=== PATIENT | female | born 1970 | race Hispanic/Latino ===

== ENCOUNTER 2016-10-14 13:58 | Emergency (ER) | payer SELFPAY ==
[2016-10-14 14:12] VITALS: BP 114/67
--- NOTE | 2016-10-14 15:24 | XRay Report ---
LEFT WRIST, 4 views: HISTORY: Pain, swelling. Routine views demonstrate the carpal bones to be well mineralized with well preserved bony mineralization and interosseous joint spaces. The carpal and adjacent articular bones have normal contours. The surrounding soft tissues are unremarkable. IMPRESSION: Unremarkable exam.
--- NOTE | 2016-10-14 15:24 | XRay Report ---
LEFT HAND, 3 views: History: Pain, swelling The bony architecture is intact. Bony alignment is normal. No soft tissue abnormalities are seen. The joint spaces appear preserved. IMPRESSION: Normal left hand.
[2016-10-14] MEDS ORDERED: MOTRIN PO ONE (15:41)
[2016-10-14] MEDS ORDERED: TRIPLE ANTIBIOTIC TP ONE (15:41)
--- NOTE | 2016-10-14 15:50 | Emergency Department Report ---
ED Extremity Problem HPI - General Chief complaint: Extremity Injury, Upper Stated complaint: PAIN IN R ARM Time Seen by Provider: 10/14/16 15:31 Source: patient Mode of arrival: Ambulatory Limitations: No Limitations - History of Present Illness Initial comments: PT c/o fall at 0430. PT states she was running across the street and she tripped. PT states she landed on concrete. PT states she scrapped her R shoulder but states it does not hurt. PT states her pain is in her L shoulder. MD Complaint: joint paint -: Sudden, hour(s) Time: 04:30 Location: left, upper extremity Severity scale (0 -10): 9 Quality: sharp, constant Consistency: constant Improves with: nothing Worsens with: palpation, other (movement ) Associated Symptoms: denies other symptoms - Related Data Previous Rx's Medication Instructions Recorded Last Taken Type Ibuprofen [Motrin] 600 mg PO Q8H PRN #15 tablet 10/14/16 Unknown Rx Allergies Allergy/AdvReac Type Severity Reaction Status Date / Time No Known Allergies Allergy Verified 07/02/15 19:29 ED Review of Systems ROS: Stated complaint: PAIN IN R ARM Other details as noted in HPI Comment: All other systems reviewed and negative Constitutional: denies: fever Respiratory: denies: shortness of breath, SOB with exertion, SOB at rest Cardiovascular: denies: chest pain, syncope Gastrointestinal: denies: abdominal pain, nausea, vomiting Musculoskeletal: as per HPI Skin: as per HPI Neurological: denies: numbness, paresthesias ED Past Medical Hx - Past Medical History Hx Psychiatric Treatment: Yes (bipolar) Additional medical history: Methamphetamine abuse - Surgical History Additional Surgical History: . cone biopsy. - Social History Smoking Status: Current Every Day Smoker Substance Use Type: Alcohol, Cocaine, Methamphetamines - Medications Home Medications: Home Medications Medication Instructions Recorded Confirmed Last Taken Type Ibuprofen [Motrin] 600 mg PO Q8H PRN #15 tablet 10/14/16 Unknown Rx ED Physical Exam - General Limitations: No Limitations General appearance: alert, in no apparent distress - Head Head exam: Present: atraumatic, normocephalic, normal inspection - Eye Eye exam: Present: normal appearance, EOMI. Absent: conjunctival injection - ENT ENT exam: Present: normal exam, normal external ear exam - Neck Neck exam: Present: normal inspection, full ROM. Absent: tenderness - Respiratory Respiratory exam: Present: normal lung sounds bilaterally. Absent: respiratory distress - Cardiovascular Cardiovascular Exam: Present: regular rate, normal rhythm - GI/Abdominal GI/Abdominal exam: Present: soft. Absent: tenderness - Expanded Upper Extremity Exam Left Elbow exam: Present: normal inspection, full ROM Forearm Wrist exam: Present: normal inspection, full ROM, other (pt reports pain to the Ulnar aspect of her L wrist ). Absent: tenderness Vascular: Present: radial pulse. Absent: vascular compromise Right Shoulder Exam: Present: full ROM. Absent: normal inspection (small abrasion to R ), tenderness, ecchymosis, deformity, crepidus, dislocation, tenderness over AC joint Elbow exam: Present: normal inspection, full ROM Forearm Wrist exam: Present: full ROM, ecchymosis (small bruises to R fa, non tender ). Absent: tenderness, tenderness over anatomical snuff box Vascular: Absent: vascular compromise - Back Exam Back exam: Present: normal inspection, full ROM. Absent: tenderness, CVA tenderness (R), CVA tenderness (L), muscle spasm, paraspinal tenderness, vertebral tenderness - Neurological Exam Neurological exam: Present: alert, oriented X3 - Psychiatric Psychiatric exam: Present: normal affect, normal mood - Skin Skin exam: Present: warm, dry ED Course Vital Signs 10/14/16 10/14/16 14:10 16:49 Temperature 98 F Pulse Rate 87 Respiratory 16 22 Rate Blood Pressure 114/67 O2 Sat by Pulse 99 Oximetry - Reevaluation(s) Reevaluation #1: 10/14/16 15:46 PT was unsure when her last TD vaccine was, after I looked up her vaccine summary in [employer], I went back to inform her that it was given on 11-06-14. PT was going thru cabinets in exam room at this time. Reevaluation #2: 10/14/16 16:52 PT placed in L velcro wrist splint. PT NVI. PT states decrease in pain. - Pulse Oximetry Interpretation Digit-Finger Initial Pulse Oximetry Readin Actions Taken: none ED Medical Decision Making - Radiology Data Radiology results: report reviewed L wrist - NAP L hand _ nap - Differential Diagnosis fracture, contusion, strain Critical Care Time: No Critical care attestation.: If time is entered above; I have spent that time in minutes in the direct care of this critically ill patient, excluding procedure time. ED Disposition Clinical Impression: Left wrist pain Fall Qualifiers: Encounter type: initial encounter Qualified Code(s): W19.XXXA - Unspecified fall, initial encounter Abrasion of right shoulder Qualifiers: Encounter type: initial encounter Qualified Code(s): S40.211A - Abrasion of right shoulder, initial encounter Disposition: DISCHARGED TO HOME OR SELFCARE Is pt being admited?: No Does the pt Need Aspirin: No Condition: Stable Instructions: Wrist Injury (ED), Fall Prevention (ED), Wrist Sprain (ED) Prescriptions: Ibuprofen [Motrin] 600 mg PO Q8H PRN #15 tablet PRN Reason: Pain Referrals: PRIMARY CARE, [Primary Care Provider] - 3-5 Days SHARATH ROQUE MD [Staff Physician] - 3-5 Days Time of Disposition: 15:55
== END 2016-10-14 17:07 | disposition home or self-care (01) ==
LOC: ED 13:58
DX: S40.211A Abrasion of right shoulder, initial encounter (principal); M25.532 Pain in left wrist; F31.9 Bipolar disorder, unspecified; F14.90 Cocaine use, unspecified, uncomplicated; F17.200 Nicotine dependence, unspecified, uncomplicated; W19.XXXA Unspecified fall, initial encounter; Y93.89 Activity, other specified; Y99.9 Unspecified external cause status; Y92.89 Other specified places as the place of occurrence of the external cause
CPT/HCPCS: A6250

== ENCOUNTER 2017-09-16 05:47 | Emergency (ER) | payer SELFPAY | END 2017-09-16 07:45 | disposition left against medical advice (07) | LOC: ED 05:47 | DX: L02.92 Furuncle, unspecified (principal); Z53.21 Procedure and treatment not carried out due to patient leaving prior to being seen by health care provider ==

== ENCOUNTER 2018-09-30 06:40 | Inpatient (IN) | payer OTHER ==
[2018-09-30 07:19] LABS: Basophils % (Auto) 0.5 % (0.0-1.8); Eosinophils # (Auto) 0.3 K/mm3 (0.0-0.4); Eosinophils % (Auto) 2.8 % (0.0-4.3); Hematocrit 34.5 % (30.3-42.9); Hemoglobin 12.2 gm/dl (10.1-14.3); Lymphocytes % (Auto) 21.2 % (13.4-35.0); Mean Corpuscular HGB Conc 35 % (30-34); Mean Corpuscular Volume 90 fl (79-97); Monocytes # (Auto) 0.9 K/mm3 (0.0-0.8); Platelet Count 265 K/mm3 (140-440); Red Blood Count 3.83 M/mm3 (3.65-5.03); Red Cell Distribution Width 12.7 % (13.2-15.2)
[2018-09-30 07:44] LABS: Calcium 8.3 mg/dL (8.4-10.2)
[2018-09-30] MEDS ORDERED: NACL 0.9% 1000 ML 1,000 ML IV ONE ×2 (08:09→10:14)
[2018-09-30] MEDS ORDERED: K-DUR PO ONE ×2 (08:09→17:23)
--- NOTE | 2018-09-30 08:39 | Emergency Department Report ---
ED Psych HPI - General Chief Complaint: Psych Stated Complaint: PSYCH Time Seen by Provider: 09/30/18 08:05 Source: patient Mode of arrival: Ambulatory Limitations: No Limitations - History of Present Illness Initial Comments: 48-year-old female with a past medical history of bipolar disorder and polysubstance abuse presents to the hospital with complaints of suicidal ideation and drug abuse. [facility] was recently [facility] the past 4 months ago was released 2 weeks ago. She does not have a place to live since being released from [facility]. She has been using multiple drugs but most recently reports methamphetamine abuse last night. She drinks alcohol daily but denies a history of withdrawal tremors or seizures. She is not currently on medications for bipolar and reports occasional auditory hallucinations. Patient reports plan to overdose on medications. She does complain of some chronic back pain and musculoskeletal pain. - Related Data Previous Rx's Medication Instructions Recorded Last Taken Type Ibuprofen [Motrin] 600 mg PO Q8H PRN #15 tablet 10/14/16 Unknown Rx Allergies Allergy/AdvReac Type Severity Reaction Status Date / Time No Known Allergies Allergy Verified 07/02/15 19:29 ED Review of Systems ROS: Stated complaint: PSYCH Other details as noted in HPI Comment: All other systems reviewed and negative ED Past Medical Hx - Past Medical History Previous Medical History?: Yes Hx Psychiatric Treatment: Yes (bipolar) Additional medical history: Methamphetamine abuse - Surgical History Past Surgical History?: Yes Additional Surgical History: . cone biopsy. - Social History Smoking Status: Current Every Day Smoker Substance Use Type: Alcohol, Methamphetamines - Medications Home Medications: Home Medications Medication Instructions Recorded Confirmed Last Taken Type Ibuprofen [Motrin] 600 mg PO Q8H PRN #15 tablet 10/14/16 Unknown Rx ED Physical Exam - General Limitations: No Limitations - Other Other exam information: General: No limitations, patient is alert in no acute distress Head exam: Atraumatic, normocephalic Eyes exam: Normal appearance ENT: Moist mucous membrane Neck exam: Normal inspection, full range of motion, no meningismus nontender Respiratory exam: Clear to auscultation bilateral, no wheezes, rales, crackles Cardiovascular: Normal rate and rhythm, normal heart sounds Abdomen: Soft, nondistended, and nontender, with normal bowel sounds, no rebound, or guarding Extremity: Full range of motion normal inspection no deformity Back: Normal Inspection, full range of motion, no tenderness Neurologic: Alert, oriented x3, cranial nerves intact, no motor or sensory deficit Psychiatric: normal affect, normal mood Skin: Warm, dry, intact ED Course Vital Signs 09/30/18 09/30/18 09/30/18 06:44 08:53 09:18 Temperature 97.5 F L 97.8 F Pulse Rate 84 73 Respiratory 22 26 H 20 Rate Blood Pressure 127/84 Blood Pressure 96/56 [96\56] O2 Sat by Pulse 98 98 100 Oximetry ED Medical Decision Making - Lab Data Result diagrams: 09/30/18 07:05 09/30/18 07:05 Lab Results 09/30/18 09/30/18 09/30/18 Range/Units 07:05 07:05 07:05 WBC (4.5-11.0) K/mm3 RBC (3.65-5.03) M/mm3 Hgb (10.1-14.3) gm/dl Hct (30.3-42.9) % MCV (79-97) fl MCH (28-32) pg MCHC (30-34) % RDW (13.2-15.2) % Plt Count (140-440) K/mm3 Lymph % (Auto) (13.4-35.0) % Union % (Auto) (0.0-7.3) % Eos % (Auto) (0.0-4.3) % Baso % (Auto) (0.0-1.8) % Lymph # (1.2-5.4) K/mm3 Union # (0.0-0.8) K/mm3 Eos # (0.0-0.4) K/mm3 Baso # (0.0-0.1) K/mm3 Seg Neutrophils % (40.0-70.0) % Seg Neutrophils # (1.8-7.7) K/mm3 Sodium 131 L (137-145) mmol/L Potassium 2.7 L* (3.6-5.0) mmol/L Chloride 91.6 L (98-107) mmol/L Carbon Dioxide 22 (22-30) mmol/L Anion Gap 20 mmol/L BUN 23 H (7-17) mg/dL Creatinine 1.3 H (0.7-1.2) mg/dL Estimated GFR 44 ml/min BUN/Creatinine Ratio 18 % Glucose 113 H (65-100) mg/dL Calcium 8.3 L (8.4-10.2) mg/dL Magnesium (1.7-2.3) mg/dL Total Creatine Kinase (30-135) units/L Urine Bilirubin (Negative) Urine RBC (Auto) (0.0-6.0) /HPF U Epithel Cells (Auto) (0-13.0) /HPF Salicylates 10.7 (2.8-20.0) mg/dL Acetaminophen < 5.0 L (10.0-30.0) ug/mL Plasma/Serum Alcohol (0-0.07) % 09/30/18 09/30/18 09/30/18 Range/Units 07:05 07:05 07:05 WBC 9.6 (4.5-11.0) K/mm3 RBC 3.83 (3.65-5.03) M/mm3 Hgb 12.2 (10.1-14.3) gm/dl Hct 34.5 (30.3-42.9) % MCV 90 (79-97) fl MCH 32 (28-32) pg MCHC 35 H (30-34) % RDW 12.7 L (13.2-15.2) % Plt Count 265 (140-440) K/mm3 Lymph % (Auto) 21.2 (13.4-35.0) % Union % (Auto) 9.0 H (0.0-7.3) % Eos % (Auto) 2.8 (0.0-4.3) % Baso % (Auto) 0.5 (0.0-1.8) % Lymph # 2.0 (1.2-5.4) K/mm3 Union # 0.9 H (0.0-0.8) K/mm3 Eos # 0.3 (0.0-0.4) K/mm3 Baso # 0.0 (0.0-0.1) K/mm3 Seg Neutrophils % 66.5 (40.0-70.0) % Seg Neutrophils # 6.4 (1.8-7.7) K/mm3 Sodium (137-145) mmol/L Potassium (3.6-5.0) mmol/L Chloride (98-107) mmol/L Carbon Dioxide (22-30) mmol/L Anion Gap mmol/L BUN (7-17) mg/dL Creatinine (0.7-1.2) mg/dL Estimated GFR ml/min BUN/Creatinine Ratio % Glucose (65-100) mg/dL Calcium (8.4-10.2) mg/dL Magnesium 1.90 (1.7-2.3) mg/dL Total Creatine Kinase 56042 H (30-135) units/L Urine Bilirubin (Negative) Urine RBC (Auto) (0.0-6.0) /HPF U Epithel Cells (Auto) (0-13.0) /HPF Salicylates (2.8-20.0) mg/dL Acetaminophen (10.0-30.0) ug/mL Plasma/Serum Alcohol < 0.01 (0-0.07) % 09/30/18 Range/Units 09:08 WBC (4.5-11.0) K/mm3 RBC (3.65-5.03) M/mm3 Hgb (10.1-14.3) gm/dl Hct (30.3-42.9) % MCV (79-97) fl MCH (28-32) pg MCHC (30-34) % RDW (13.2-15.2) % Plt Count (140-440) K/mm3 Lymph % (Auto) (13.4-35.0) % Union % (Auto) (0.0-7.3) % Eos % (Auto) (0.0-4.3) % Baso % (Auto) (0.0-1.8) % Lymph # (1.2-5.4) K/mm3 Union # (0.0-0.8) K/mm3 Eos # (0.0-0.4) K/mm3 Baso # (0.0-0.1) K/mm3 Seg Neutrophils % (40.0-70.0) % Seg Neutrophils # (1.8-7.7) K/mm3 Sodium (137-145) mmol/L Potassium (3.6-5.0) mmol/L Chloride (98-107) mmol/L Carbon Dioxide (22-30) mmol/L Anion Gap mmol/L BUN (7-17) mg/dL Creatinine (0.7-1.2) mg/dL Estimated GFR ml/min BUN/Creatinine Ratio % Glucose (65-100) mg/dL Calcium (8.4-10.2) mg/dL Magnesium (1.7-2.3) mg/dL Total Creatine Kinase (30-135) units/L Urine Bilirubin Neg (Negative) Urine RBC (Auto) 1.0 (0.0-6.0) /HPF U Epithel Cells (Auto) 1.0 (0-13.0) /HPF Salicylates (2.8-20.0) mg/dL Acetaminophen (10.0-30.0) ug/mL Plasma/Serum Alcohol (0-0.07) % - Medical Decision Making plan to admit for rhabdo NS inititate PO kcl for hypokalemia admit for tx and med clearance - Differential Diagnosis suicidal, bipolar, medication noncompliance, homeless Critical Care Time: No Critical care attestation.: If time is entered above; I have spent that time in minutes in the direct care of this critically ill patient, excluding procedure time. ED Disposition Clinical Impression: Rhabdomyolysis, Methamphetamine abuse, Polysubstance abuse, Hypokalemia, Suicidal ideation, Bipolar disorder, Noncompliance with medication regimen, Homeless, Cocaine abuse Disposition: OP ADMIT IP TO THIS HOSP Is pt being admited?: Yes Condition: Stable Time of Disposition: 10:21 (Dr Daniel/Sheree hospitalist to admit)
[2018-09-30 10:15] LABS: Bilirubin,Urine NEG (Negative); Color,Urine Yellow (Yellow); Urobilinogen,Urine < 2.0 mg/dL (<2.0)
[2018-09-30 10:33] LABS: Blood,Urine Moderate (Negative)
[2018-09-30 10:36] LABS: Bacteria,Urine 1+ /HPF (Negative)
[2018-09-30 10:37] LABS: HCG Qualitative,Urine Negative (Negative); Mucus,Urine FEW /HPF
[2018-09-30 11:15] LABS: Benzodiazepines Screen,Urine PRESUMPTIVE NEGATIVE; Cannabinoid Screen,Urine PRESUMPTIVE NEGATIVE; Methadone Screen,Urine PRESUMPTIVE NEGATIVE; Opiate Screen,Urine PRESUMPTIVE NEGATIVE
--- NOTE | 2018-09-30 11:23 | History and Physical Report ---
History of Present Illness Date of examination: 09/30/18 Date of admission: 09/30/18 History of present illness: 48-year-old female with a past medical history of bipolar disorder and polysubstance abuse presents to the hospital with depression and suicidal ideation patient has history of polysubstance abuse. [facility] was recently [facility] for the past 4 months ago was released 2 weeks ago. Patient is homeless and has been using multiple drugs but most recently reports methamphetamine abuse last night. She drinks alcohol daily but denies a history of withdrawal tremors or seizures. Patient has history of bipolar disorder not on any medications, also complains of gen eralized body pains Evaluation in the ED consistent with severe rhabdomyolysis, positive drug screen for marijuana and amphetamine As well as history of tobacco alcohol abuse Past History Past Medical History: other (bipolar disorder) Past Surgical History: , Other (cone biopsy) Social history: smoking, alcohol abuse, other (recreational drug use, homeless) Family history: no significant family history ( homeless) Medications and Allergies Allergies Allergy/AdvReac Type Severity Reaction Status Date / Time No Known Allergies Allergy Verified 07/02/15 19:29 Home Medications Medication Instructions Recorded Confirmed Last Taken Type Ibuprofen [Motrin] 600 mg PO Q8H PRN #15 tablet 10/14/16 Unknown Rx Review of Systems Constitutional: no weight loss, no weight gain Ears, nose, mouth and throat: no nasal congestion, no nasal discharge Cardiovascular: no chest pain, no orthopnea, no palpitations, no lightheadedness, no shortness of breath Respiratory: no cough, no shortness of breath Gastrointestinal: no abdominal pain, no nausea, no vomiting Musculoskeletal: no myalgias, no arthritis Integumentary: no rash, no pruritis Neurological: no syncope, no tremors Psychiatric: no anxiety, no depression Endocrine: no cold intolerance, no heat intolerance, no polydipsia, no polyuria Hematologic/Lymphatic: no easy bruising, no easy bleeding Allergic/Immunologic: no urticaria, no allergic rhinitis Exam - Constitutional Vitals: Temp Pulse Resp BP Pulse Ox 97.8 F 73 20 96/56 100 09/30/18 08:53 09/30/18 08:53 09/30/18 09:18 09/30/18 08:53 09/30/18 09:18 General appearance: Present: no acute distress, well-nourished - EENT Eyes: Present: PERRL, EOM intact - Neck Neck: Present: supple, normal ROM - Respiratory Respiratory effort: normal Respiratory: bilateral: diminished, negative: rales, rhonchi, wheezing - Cardiovascular Rhythm: regular Heart Sounds: Present: S1 & S2 - Extremities Extremities: no ischemia, No edema - Abdominal General gastrointestinal: Present: soft, non-tender, non-distended, normal bowel sounds - Integumentary Integumentary: Present: clear, warm - Musculoskeletal Musculoskeletal: strength equal bilaterally, generalized weakness - Psychiatric Psychiatric: appropriate mood/affect, cooperative - Neurologic Neurologic: CNII-XII intact, moves all extremities Results - Labs CBC & Chem 7: 09/30/18 07:05 09/30/18 15:53 Labs: Abnormal lab results 09/30/18 09/30/18 09/30/18 Range/Units 07:05 07:05 07:05 MCHC 35 H (30-34) % RDW 12.7 L (13.2-15.2) % Kimble % (Auto) 9.0 H (0.0-7.3) % Kimble # 0.9 H (0.0-0.8) K/mm3 Sodium 131 L (137-145) mmol/L Potassium 2.7 L* (3.6-5.0) mmol/L Chloride 91.6 L (98-107) mmol/L BUN 23 H (7-17) mg/dL Creatinine 1.3 H (0.7-1.2) mg/dL Glucose 113 H (65-100) mg/dL Calcium 8.3 L (8.4-10.2) mg/dL Total Creatine Kinase (30-135) units/L Urine Blood (Negative) U Epithel Cells (Auto) (0-13.0) /HPF Acetaminophen < 5.0 L (10.0-30.0) ug/mL 09/30/18 09/30/18 Range/Units 07:05 09:08 MCHC (30-34) % RDW (13.2-15.2) % Kimble % (Auto) (0.0-7.3) % Kimble # (0.0-0.8) K/mm3 Sodium (137-145) mmol/L Potassium (3.6-5.0) mmol/L Chloride (98-107) mmol/L BUN (7-17) mg/dL Creatinine (0.7-1.2) mg/dL Glucose (65-100) mg/dL Calcium (8.4-10.2) mg/dL Total Creatine Kinase 12032 H (30-135) units/L Urine Blood Moderate A (Negative) U Epithel Cells (Auto) 14.0 H (0-13.0) /HPF Acetaminophen (10.0-30.0) ug/mL Assessment and Plan --Severe hypokalemia; replacement per protocol Monitor levels, check magnesium --Rhabdomyolysis with preserved renal function Probably secondary to psychosis and substance abuse; Receive IV hydration, input output monitoring, monitor CK levels Renal function, diuretics --Suicidal ideation; 1013 Psych evaluation --Acute psychosis; 1013. Psych evaluation --Acute kidney injury; secondary to ATN Vigorous IV hydration, avoid nephrotoxins --Hyponatremia; replacement therapy, monitor electrolytes --UTI per urine analysis: Empiric antibiotics --Substance abuse; marijuana/amphetamines History of cocaine use tobacco and alcohol, Counseling strongly advised to quit substance abuse Drug Rehabilitation psych evaluation --Tobacco use; smoking cessation nicotine patch as needed --DVT prophylaxis; Lovenox
[2018-09-30 11:27] LABS: Amphetamine Screen,Urine PRESUMPTIVE POSITIVE; Cocaine Screen,Urine PRESUMPTIVE POSITIVE
[2018-09-30] MEDS ORDERED: NACL 0.9% 500 ML 500 ML IV ONE ×2 (14:49→19:00)
[2018-09-30 16:18] LABS: Calcium 7.2 mg/dL (8.4-10.2)
[2018-09-30] MEDS: LASIX IV SCH (17:58)
[2018-09-30] MEDS: NACL 0.9% 1000 ML 1,000 ML IV SCH ×2 (17:58→23:22)
[2018-09-30] MEDS: IBUPROFEN PO PRN (18:01)
[2018-09-30] MEDS: COLACE PO SCH (23:27)
[2018-09-30] MEDS: LOVENOX SUB-Q SCH (23:27)
[2018-10-01] MEDS: NACL 0.9% 1000 ML 1,000 ML IV SCH ×3 (03:21→19:35)
[2018-10-01] MEDS: IBUPROFEN PO PRN ×3 (03:28→21:58)
[2018-10-01 05:59] LABS: Hematocrit 27.4 % (30.3-42.9); Hemoglobin 9.7 gm/dl (10.1-14.3); Mean Corpuscular HGB Conc 36 % (30-34); Mean Corpuscular Volume 91 fl (79-97); Platelet Count 228 K/mm3 (140-440); Red Blood Count 3.01 M/mm3 (3.65-5.03); Red Cell Distribution Width 13.4 % (13.2-15.2)
[2018-10-01 06:18] LABS: Alanine Aminotransferase 145 units/L (7-56); Albumin 2.6 g/dL (3.9-5); BUN/Creatinine Ratio 9; Blood Urea Nitrogen 8 mg/dL (7-17); Hemolysis Index 9
[2018-10-01 08:30] LABS: Band Neutrophils # (Manual) 0.1 K/mm3; Basophils % (Manual) 0 % (0.0-1.8); Total Cells Counted 100
[2018-10-01 08:32] LABS: Anisocytosis 1+
--- NOTE | 2018-10-01 09:24 | Progress Note ---
Assessment and Plan Assessment and plan: --Hypokalemia; replace per protocol and monitor levels --Hypomagnesemia; mag sulfate 2 g IV, follow levels --Rhabdomyolysis with preserved renal function Probably secondary to psychosis and substance abuse; Receive IV hydration, input output monitoring, monitor CK levels Renal function, diuretics --Suicidal ideation; 1013 Psych evaluation --Acute psychosis; 1013. Psych evaluation --Acute kidney injury; secondary to ATN Vigorous IV hydration, avoid nephrotoxins --Hyponatremia; replacement therapy, corrected --UTI per urine analysis: Empiric antibiotics --Substance abuse; marijuana/amphetamines History of cocaine use tobacco and alcohol, Counseling strongly advised to quit substance abuse Drug Rehabilitation psych evaluation --Tobacco use; smoking cessation nicotine patch as needed --DVT prophylaxis; Lovenox Follow psych evaluation and recommendations History Interval history: Patient seen and examined medical records reviewed No new events reported by the nursing staff Patient feels better Safety sensitive the bedside Vital signs noted Hospitalist Physical - Constitutional Vitals: Temp Pulse Resp BP Pulse Ox 97.8 F 67 18 90/47 98 10/01/18 05:37 10/01/18 05:37 10/01/18 05:37 10/01/18 05:37 10/01/18 05:37 General appearance: Present: no acute distress, well-nourished - EENT Eyes: Present: PERRL, EOM intact - Neck Neck: Present: supple, normal ROM - Respiratory Respiratory effort: normal Respiratory: bilateral: diminished, negative: rales, rhonchi, wheezing - Cardiovascular Rhythm: regular Heart Sounds: Present: S1 & S2 - Extremities Extremities: no ischemia, No edema - Abdominal General gastrointestinal: soft, non-tender, non-distended, normal bowel sounds - Integumentary Integumentary: Present: clear, warm - Psychiatric Psychiatric: appropriate mood/affect, cooperative - Neurologic Neurologic: CNII-XII intact, moves all extremities Results - Labs CBC & Chem 7: 10/01/18 05:26 10/01/18 05:26 Labs: Laboratory Last Values WBC 4.4 K/mm3 (4.5-11.0) L 10/01/18 05:26 RBC 3.01 M/mm3 (3.65-5.03) L 10/01/18 05:26 Hgb 9.7 gm/dl (10.1-14.3) L 10/01/18 05:26 Hct 27.4 % (30.3-42.9) L D 10/01/18 05:26 MCV 91 fl (79-97) 10/01/18 05:26 MCH 32 pg (28-32) 10/01/18 05:26 MCHC 36 % (30-34) H 10/01/18 05:26 RDW 13.4 % (13.2-15.2) 10/01/18 05:26 Plt Count 228 K/mm3 (140-440) 10/01/18 05:26 Lymph % (Auto) 21.2 % (13.4-35.0) 09/30/18 07:05 [place] % (Auto) 9.0 % (0.0-7.3) H 09/30/18 07:05 Eos % (Auto) 2.8 % (0.0-4.3) 09/30/18 07:05 Baso % (Auto) 0.5 % (0.0-1.8) 09/30/18 07:05 Lymph # 2.0 K/mm3 (1.2-5.4) 09/30/18 07:05 [place] # 0.9 K/mm3 (0.0-0.8) H 09/30/18 07:05 Eos # 0.3 K/mm3 (0.0-0.4) 09/30/18 07:05 Baso # 0.0 K/mm3 (0.0-0.1) 09/30/18 07:05 Add Manual Diff Complete 10/01/18 05:26 Total Counted 100 10/01/18 05:26 Seg Neutrophils % 66.5 % (40.0-70.0) 09/30/18 07:05 Seg Neuts % (Manual) 54.0 % (40.0-70.0) 10/01/18 05:26 3.0 % 10/01/18 05:26 29.0 % (13.4-35.0) 10/01/18 05:26 Reactive Lymphs % (Man) 0 % 10/01/18 05:26 7.0 % (0.0-7.3) 10/01/18 05:26 7.0 % (0.0-4.3) H 10/01/18 05:26 0 % (0.0-1.8) 10/01/18 05:26 0 % 10/01/18 05:26 0 % 10/01/18 05:26 0 % 10/01/18 05:26 0 % 10/01/18 05:26 Nucleated RBC % Not Reportable 10/01/18 05:26 Seg Neutrophils # 6.4 K/mm3 (1.8-7.7) 09/30/18 07:05 Seg Neutrophils # Man 2.4 K/mm3 (1.8-7.7) 10/01/18 05:26 Band Neutrophils # 0.1 K/mm3 10/01/18 05:26 1.3 K/mm3 (1.2-5.4) 10/01/18 05:26 Abs React Lymphs (Man) 0.0 K/mm3 10/01/18 05:26 0.3 K/mm3 (0.0-0.8) 10/01/18 05:26 0.3 K/mm3 (0.0-0.4) 10/01/18 05:26 0.0 K/mm3 (0.0-0.1) 10/01/18 05:26 0.0 K/mm3 10/01/18 05:26 0.0 K/mm3 10/01/18 05:26 0.0 K/mm3 10/01/18 05:26 Blast Cells # 0.0 K/mm3 10/01/18 05:26 WBC Morphology Not Reportable 10/01/18 05:26 Hypersegmented Neuts Not Reportable 10/01/18 05:26 Hyposegmented Neuts Not Reportable 10/01/18 05:26 Hypogranular Neuts Not Reportable 10/01/18 05:26 Not Reportable 10/01/18 05:26 Not Reportable 10/01/18 05:26 Not Reportable 10/01/18 05:26 Not Reportable 10/01/18 05:26 Not Reportable 10/01/18 05:26 Not Reportable 10/01/18 05:26 Appears normal 10/01/18 05:26 Not Reportable 10/01/18 05:26 Plt Clumps, EDTA Not Reportable 10/01/18 05:26 Not Reportable 10/01/18 05:26 Not Reportable 10/01/18 05:26 Not Reportable 10/01/18 05:26 Plt Morphology Comment Not Reportable 10/01/18 05:26 RBC Morphology Not Reportable 10/01/18 05:26 Dimorphic RBCs Not Reportable 10/01/18 05:26 Not Reportable 10/01/18 05:26 Not Reportable 10/01/18 05:26 Not Reportable 10/01/18 05:26 1+ 10/01/18 05:26 Not Reportable 10/01/18 05:26 Not Reportable 10/01/18 05:26 Not Reportable 10/01/18 05:26 Not Reportable 10/01/18 05:26 Not Reportable 10/01/18 05:26 Not Reportable 10/01/18 05:26 Not Reportable 10/01/18 05:26 Not Reportable 10/01/18 05:26 Not Reportable 10/01/18 05:26 Not Reportable 10/01/18 05:26 Not Reportable 10/01/18 05:26 Not Reportable 10/01/18 05:26 Not Reportable 10/01/18 05:26 Not Reportable 10/01/18 05:26 Not Reportable 10/01/18 05:26 Acanthocytes (Spur) Not Reportable 10/01/18 05:26 Rouleaux Not Reportable 10/01/18 05:26 Not Reportable 10/01/18 05:26 Not Reportable 10/01/18 05:26 Not Reportable 10/01/18 05:26 Not Reportable 10/01/18 05:26 Hem Pathologist Commnt No 10/01/18 05:26 Sodium 140 mmol/L (137-145) 10/01/18 05:26 Potassium 3.2 mmol/L (3.6-5.0) L 10/01/18 05:26 Chloride 107.5 mmol/L (98-107) H 10/01/18 05:26 Carbon Dioxide 23 mmol/L (22-30) 10/01/18 05:26 13 mmol/L 10/01/18 05:26 BUN 8 mg/dL (7-17) 10/01/18 05:26 0.9 mg/dL (0.7-1.2) 10/01/18 05:26 Estimated GFR > 60 ml/min 10/01/18 05:26 9 % 10/01/18 05:26 Glucose 107 mg/dL (65-100) H 10/01/18 05:26 Calcium 7.0 mg/dL (8.4-10.2) L 10/01/18 05:26 Magnesium 1.50 mg/dL (1.7-2.3) L 10/01/18 05:26 0.20 mg/dL (0.1-1.2) 10/01/18 05:26 AST 242 units/L (5-40) H 10/01/18 05:26 ALT 145 units/L (7-56) H 10/01/18 05:26 61 units/L (35-129) 10/01/18 05:26 4652 units/L (30-135) H 10/01/18 05:26 5.1 g/dL (6.3-8.2) L 10/01/18 05:26 2.6 g/dL (3.9-5) L 10/01/18 05:26 1.0 % 10/01/18 05:26 Yellow (Yellow) 09/30/18 09:08 Slightly cloudy (Clear) 09/30/18 09:08 6.0 (5.0-7.0) 09/30/18 09:08 Ur Specific [place] 1.008 (1.003-1.030) 09/30/18 09:08 30 mg/dl mg/dL (Negative) 09/30/18 09:08 Neg mg/dL (Negative) 09/30/18 09:08 Trace mg/dL (Negative) 09/30/18 09:08 Moderate (Negative) A 09/30/18 09:08 Neg (Negative) 09/30/18 09:08 Neg (Negative) 09/30/18 09:08 < 2.0 mg/dL (<2.0) 09/30/18 09:08 Ur Leukocyte Esterase Large (Negative) 09/30/18 09:08 4.0 /HPF (0.0-6.0) 09/30/18 09:08 4.0 /HPF (0.0-6.0) 09/30/18 09:08 U Epithel Cells (Auto) 14.0 /HPF (0-13.0) H 09/30/18 09:08 1+ /HPF (Negative) 09/30/18 09:08 Few /HPF 09/30/18 09:08 Urine HCG, Qual Negative (Negative) 09/30/18 09:08 Salicylates 10.7 mg/dL (2.8-20.0) 09/30/18 07:05 Presumptive negative 09/30/18 Unknown Presumptive negative 09/30/18 Unknown Acetaminophen < 5.0 ug/mL (10.0-30.0) L 09/30/18 07:05 Ur Barbiturates Screen Presumptive negative 09/30/18 Unknown Ur Phencyclidine Scrn Presumptive negative 09/30/18 Unknown Ur Amphetamines Screen Presumptive positive 09/30/18 Unknown U Benzodiazepines Scrn Presumptive negative 09/30/18 Unknown Presumptive positive 09/30/18 Unknown U Marijuana (THC) Screen Presumptive negative 09/30/18 Unknown Disclamer 09/30/18 Unknown Plasma/Serum Alcohol < 0.01 % (0-0.07) 09/30/18 07:05 Active Medications - Current Medications Current Medications: Generic Name Dose Route Start Last Admin Trade Name Freq PRN Reason Stop Dose Admin Docusate Sodium 100 mg 09/30/18 22:00 09/30/18 23:27 Colace PO 100 mg BID JANETH Administration Enoxaparin Sodium 40 mg 09/30/18 22:00 09/30/18 23:27 Lovenox SUB-Q 40 mg QDAY@2200 JANETH Administration Furosemide 20 mg 09/30/18 18:00 09/30/18 17:58 Lasix IV 20 mg 0600,1800 JANETH Administration Sodium Chloride 1,000 mls @ 200 mls/hr 09/30/18 12:00 10/01/18 03:21 Nacl 0.9% 1000 Ml IV 200 mls/hr DIRECT JANETH Administration Ceftriaxone Sodium 1 gm in 50 mls @ 100 mls/hr 10/01/18 10:00 Rocephin/Ns 1 Gm/50 Ml IV Q24HR JANETH Protocol Ibuprofen 600 mg 09/30/18 17:28 10/01/18 03:28 Motrin PO 600 mg Q8H PRN Administration Pain
[2018-10-01] MEDS: COLACE PO SCH ×2 (09:53→21:58)
[2018-10-01] MEDS: ROCEPHIN/NS 1 GM/50 ML 1 GM/50 ML BAG IV SCH (09:54)
[2018-10-01] MEDS ORDERED: K-DUR PO ONE (10:00)
[2018-10-01] MEDS ORDERED: MAGNESIUM SULFATE 2GM/50ML 2 GM/50 ML BAG IV ONE (10:00)
[2018-10-01] MEDS: LASIX IV SCH ×2 (10:19→17:28)
--- NOTE | 2018-10-01 12:54 | Consultation ---
History of Present Illness - Reason for Consult Consult date: 10/01/18 Reason for consult: psychiatric evaluation - Chief Complaint Chief complaint: "I hurt all over." - History of Present Psychiatric Illness 48-year-old female with a past medical history of bipolar disorder and polysubstance abuse presents to the hospital with complaints of suicidal ideation and drug abuse. She was seen on the medical floor. She has been adm itted with rhabdomyolysis and has elevated liver enzymes. Patient was recently incarcerated in general for the past 4 months ago was released 2 weeks ago. She does not have a place to live since being released from nursing home. She has been using multiple drugs but most recently reports methamphetamine use before arrival to the ER. She drinks alcohol daily but denies a history of withdrawal tremors or seizures. She reports suicidal ideation to overdose. She has not been compliant with bipolar meds because she cannot afford them. She was focused on generalized pain during the interview and cried intermittently. Medications and Allergies Allergies Allergy/AdvReac Type Severity Reaction Status Date / Time No Known Allergies Allergy Verified 07/02/15 19:29 Home Medications Medication Instructions Recorded Confirmed Last Taken Type Ibuprofen [Motrin] 600 mg PO Q8H PRN #15 tablet 10/14/16 Unknown Rx Active Meds: Active Medications Docusate Sodium (Colace) 100 mg PO BID [facility] Last Admin: 10/01/18 09:53 Dose: 100 mg Documented by: Enoxaparin Sodium (Lovenox) 40 mg SUB-Q QDAY@2200 [facility] Last Admin: 09/30/18 23:27 Dose: 40 mg Documented by: Furosemide (Lasix) 20 mg IV 0600,1800 [facility] Last Admin: 10/01/18 10:19 Dose: 20 mg Documented by: Sodium Chloride (Nacl 0.9% 1000 Ml) 1,000 mls @ 200 mls/hr IV DIRECT [facility] Last Admin: 10/01/18 09:56 Dose: 200 mls/hr Documented by: Ceftriaxone Sodium (Rocephin/Ns 1 Gm/50 Ml) 1 gm in 50 mls @ 100 mls/hr IV Q24HR [facility]; Protocol Last Admin: 10/01/18 09:54 Dose: 100 mls/hr Documented by: Ibuprofen (Motrin) 600 mg PO Q8H PRN PRN Reason: Pain Last Admin: 10/01/18 12:10 Dose: 600 mg Documented by: Past psychiatric history - Past Medical History Past Medical History: hepatitis (C) - past Psychiatric treatment and history Psych: Addictions, Bipolar psychiatric treatment history: overdosed in 1995 and did not receive outpatient treatment previously took wellbutrin, lamictal 300mg daily, and seroquel - Social History Social history: other (homeless) Mental Status Exam - Vital signs Last Vital Signs Temp 97.8 F 10/01/18 05:37 Pulse 67 10/01/18 05:37 Resp 18 10/01/18 05:37 BP 90/47 10/01/18 05:37 Pulse Ox 98 10/01/18 05:37 - Exam Orientation: time, place, person Affect: depressed Mood: congruent with affect Thought content: other (suicidal ideation with a plan. no HI) Thought Process: Intact Perceptions: auditory, hallucinations (responding to internal stimuli) Speech: other (loud) Concentration: distractible Motor activity: restless Level of consciousness: alert Memory: Intact Sleep Symptoms: Insomnia Appetite: decreased Interaction: irritable Results Result Diagrams: 10/01/18 05:26 10/02/18 05:11 Abnormal lab results 09/30/18 10/01/18 10/01/18 Range/Units 15:53 05:26 05:26 WBC 4.4 L (4.5-11.0) K/mm3 RBC 3.01 L (3.65-5.03) M/mm3 Hgb 9.7 L (10.1-14.3) gm/dl Hct 27.4 L D (30.3-42.9) % MCHC 36 H (30-34) % Eosinophils % (Manual) 7.0 H (0.0-4.3) % Potassium 3.3 L D 3.2 L (3.6-5.0) mmol/L Chloride 107.5 H (98-107) mmol/L Glucose 129 H 107 H (65-100) mg/dL Calcium 7.2 L 7.0 L (8.4-10.2) mg/dL Magnesium 1.50 L (1.7-2.3) mg/dL AST 242 H (5-40) units/L ALT 145 H (7-56) units/L Total Creatine Kinase 9059 H 4652 H (30-135) units/L Total Protein 5.1 L (6.3-8.2) g/dL Albumin 2.6 L (3.9-5) g/dL All other labs normal. Assessment and Plan Assessment and plan: Impression: bipolar disorder, current episode depressed methamphetamine use, r/o amphetamine induced psychotic disorder cocaine use disorder medical team is addressing rhabdo and liver. She has hep c Recommendation: continue 1013 plan to restart wellbutrin and lamictal since these worked well for her previously . 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 dispo: once medically cleared, disposition will be determined will staff with Dr. St
[2018-10-01] MEDS: LOVENOX SUB-Q SCH (21:58)
[2018-10-02] MEDS: NACL 0.9% 1000 ML 1,000 ML IV SCH ×3 (00:39→10:03)
[2018-10-02] MEDS: LASIX IV SCH ×2 (05:22→18:00)
[2018-10-02 06:04] LABS: BUN/Creatinine Ratio 11; Blood Urea Nitrogen 8 mg/dL (7-17); Calcium 6.8 mg/dL (8.4-10.2); Hemolysis Index 2
[2018-10-02] MEDS ORDERED: K-DUR PO ONE (09:11)
[2018-10-02] MEDS ORDERED: KPHOS 40 MMOL in NACL 0.9% 500 ML 500 ML IV ONE (09:12)
[2018-10-02] MEDS ORDERED: MAGNESIUM SULFATE 2GM/50ML 2 GM/50 ML BAG IV ONE (09:13)
--- NOTE | 2018-10-02 09:18 | Progress Note ---
Assessment and Plan Assessment and plan: --Hypokalemia; replace per protocol and monitor levels --Hypomagnesemia; mag sulfate 2 g IV, follow levels --Hypophosphatemia: Replace with K-Phos --Rhabdomyolysis with preserved renal function CK levels trendin- 5997- 7887 Probably secondary to psychosis and substance abuse; Continue IV hydration, input output monitoring --Suicidal ideation; 1013 Psych evaluation --Acute psychosis; 1013. Psych evaluation --Acute kidney injury; secondary to ATN Resolved --Hyponatremia; replacement therapy, corrected --UTI per urine analysis: Empiric antibiotics, cultures negative to date --Substance abuse; marijuana/amphetamines History of cocaine use tobacco and alcohol, Counseling strongly advised to quit substance abuse Drug Rehabilitation psych evaluation --Tobacco use; smoking cessation nicotine patch as needed --DVT prophylaxis; Lovenox Follow psych evaluation and recommendations History Interval history: Patient seen and examined medical records reviewed Patient feels better no new complaints No new episodes of suicidal ideation or thoughts Safety seat at the bedside Alert awake oriented Vital signs reviewed Hospitalist Physical - Constitutional Vitals: Temp Pulse Resp BP Pulse Ox 98.6 F 66 16 102/55 94 10/02/18 05:50 10/02/18 05:50 10/02/18 05:50 10/02/18 05:50 10/02/18 05:50 General appearance: Present: no acute distress, well-nourished, obese - EENT Eyes: Present: PERRL, EOM intact - Neck Neck: Present: supple, normal ROM - Respiratory Respiratory effort: normal Respiratory: bilateral: diminished, negative: rales, rhonchi, wheezing - Cardiovascular Rhythm: regular Heart Sounds: Present: S1 & S2 - Extremities Extremities: no ischemia, No edema - Abdominal General gastrointestinal: soft, non-tender, non-distended, normal bowel sounds - Integumentary Integumentary: Present: clear, warm - Psychiatric Psychiatric: appropriate mood/affect, cooperative - Neurologic Neurologic: CNII-XII intact, moves all extremities Results - Labs CBC & Chem 7: 10/01/18 05:26 10/02/18 05:11 Labs: Laboratory Last Values WBC 4.4 K/mm3 (4.5-11.0) L 10/01/18 05:26 RBC 3.01 M/mm3 (3.65-5.03) L 10/01/18 05:26 Hgb 9.7 gm/dl (10.1-14.3) L 10/01/18 05:26 Hct 27.4 % (30.3-42.9) L D 10/01/18 05:26 MCV 91 fl (79-97) 10/01/18 05:26 MCH 32 pg (28-32) 10/01/18 05:26 MCHC 36 % (30-34) H 10/01/18 05:26 RDW 13.4 % (13.2-15.2) 10/01/18 05:26 Plt Count 228 K/mm3 (140-440) 10/01/18 05:26 Lymph % (Auto) 21.2 % (13.4-35.0) 09/30/18 07:05 [place] % (Auto) 9.0 % (0.0-7.3) H 09/30/18 07:05 Eos % (Auto) 2.8 % (0.0-4.3) 09/30/18 07:05 Baso % (Auto) 0.5 % (0.0-1.8) 09/30/18 07:05 Lymph # 2.0 K/mm3 (1.2-5.4) 09/30/18 07:05 [place] # 0.9 K/mm3 (0.0-0.8) H 09/30/18 07:05 Eos # 0.3 K/mm3 (0.0-0.4) 09/30/18 07:05 Baso # 0.0 K/mm3 (0.0-0.1) 09/30/18 07:05 Add Manual Diff Complete 10/01/18 05:26 Total Counted 100 10/01/18 05:26 Seg Neutrophils % 66.5 % (40.0-70.0) 09/30/18 07:05 Seg Neuts % (Manual) 54.0 % (40.0-70.0) 10/01/18 05:26 3.0 % 10/01/18 05:26 29.0 % (13.4-35.0) 10/01/18 05:26 Reactive Lymphs % (Man) 0 % 10/01/18 05:26 7.0 % (0.0-7.3) 10/01/18 05:26 7.0 % (0.0-4.3) H 10/01/18 05:26 0 % (0.0-1.8) 10/01/18 05:26 0 % 10/01/18 05:26 0 % 10/01/18 05:26 0 % 10/01/18 05:26 0 % 10/01/18 05:26 Nucleated RBC % Not Reportable 10/01/18 05:26 Seg Neutrophils # 6.4 K/mm3 (1.8-7.7) 09/30/18 07:05 Seg Neutrophils # Man 2.4 K/mm3 (1.8-7.7) 10/01/18 05:26 Band Neutrophils # 0.1 K/mm3 10/01/18 05:26 1.3 K/mm3 (1.2-5.4) 10/01/18 05:26 Abs React Lymphs (Man) 0.0 K/mm3 10/01/18 05:26 0.3 K/mm3 (0.0-0.8) 10/01/18 05:26 0.3 K/mm3 (0.0-0.4) 10/01/18 05:26 0.0 K/mm3 (0.0-0.1) 10/01/18 05:26 0.0 K/mm3 10/01/18 05:26 0.0 K/mm3 10/01/18 05:26 0.0 K/mm3 10/01/18 05:26 Blast Cells # 0.0 K/mm3 10/01/18 05:26 WBC Morphology Not Reportable 10/01/18 05:26 Hypersegmented Neuts Not Reportable 10/01/18 05:26 Hyposegmented Neuts Not Reportable 10/01/18 05:26 Hypogranular Neuts Not Reportable 10/01/18 05:26 Not Reportable 10/01/18 05:26 Not Reportable 10/01/18 05:26 Not Reportable 10/01/18 05:26 Not Reportable 10/01/18 05:26 Not Reportable 10/01/18 05:26 Not Reportable 10/01/18 05:26 Appears normal 10/01/18 05:26 Not Reportable 10/01/18 05:26 Plt Clumps, EDTA Not Reportable 10/01/18 05:26 Not Reportable 10/01/18 05:26 Not Reportable 10/01/18 05:26 Not Reportable 10/01/18 05:26 Plt Morphology Comment Not Reportable 10/01/18 05:26 RBC Morphology Not Reportable 10/01/18 05:26 Dimorphic RBCs Not Reportable 10/01/18 05:26 Not Reportable 10/01/18 05:26 Not Reportable 10/01/18 05:26 Not Reportable 10/01/18 05:26 1+ 10/01/18 05:26 Not Reportable 10/01/18 05:26 Not Reportable 10/01/18 05:26 Not Reportable 10/01/18 05:26 Not Reportable 10/01/18 05:26 Not Reportable 10/01/18 05:26 Not Reportable 10/01/18 05:26 Not Reportable 10/01/18 05:26 Not Reportable 10/01/18 05:26 Not Reportable 10/01/18 05:26 Not Reportable 10/01/18 05:26 Not Reportable 10/01/18 05:26 Not Reportable 10/01/18 05:26 Not Reportable 10/01/18 05:26 Not Reportable 10/01/18 05:26 Not Reportable 10/01/18 05:26 Acanthocytes (Spur) Not Reportable 10/01/18 05:26 Rouleaux Not Reportable 10/01/18 05:26 Not Reportable 10/01/18 05:26 Not Reportable 10/01/18 05:26 Not Reportable 10/01/18 05:26 Not Reportable 10/01/18 05:26 Hem Pathologist Commnt No 10/01/18 05:26 Sodium 143 mmol/L (137-145) 10/02/18 05:11 Potassium 3.0 mmol/L (3.6-5.0) L 10/02/18 05:11 Chloride 106.4 mmol/L (98-107) 10/02/18 05:11 Carbon Dioxide 27 mmol/L (22-30) 10/02/18 05:11 13 mmol/L 10/02/18 05:11 BUN 8 mg/dL (7-17) 10/02/18 05:11 0.7 mg/dL (0.7-1.2) 10/02/18 05:11 Estimated GFR > 60 ml/min 10/02/18 05:11 11 % 10/02/18 05:11 Glucose 105 mg/dL (65-100) H 10/02/18 05:11 Calcium 6.8 mg/dL (8.4-10.2) L 10/02/18 05:11 Phosphorus 1.90 mg/dL (2.5-4.5) L 10/02/18 05:11 Magnesium 1.60 mg/dL (1.7-2.3) L 10/02/18 05:11 0.20 mg/dL (0.1-1.2) 10/01/18 05:26 AST 242 units/L (5-40) H 10/01/18 05:26 ALT 145 units/L (7-56) H 10/01/18 05:26 61 units/L (35-129) 10/01/18 05:26 2347 units/L (30-135) H 10/02/18 05:11 5.1 g/dL (6.3-8.2) L 10/01/18 05:26 2.6 g/dL (3.9-5) L 10/01/18 05:26 1.0 % 10/01/18 05:26 Yellow (Yellow) 09/30/18 09:08 Slightly cloudy (Clear) 09/30/18 09:08 6.0 (5.0-7.0) 09/30/18 09:08 Ur Specific [place] 1.008 (1.003-1.030) 09/30/18 09:08 30 mg/dl mg/dL (Negative) 09/30/18 09:08 Neg mg/dL (Negative) 09/30/18 09:08 Trace mg/dL (Negative) 09/30/18 09:08 Moderate (Negative) A 09/30/18 09:08 Neg (Negative) 09/30/18 09:08 Neg (Negative) 09/30/18 09:08 < 2.0 mg/dL (<2.0) 09/30/18 09:08 Ur Leukocyte Esterase Large (Negative) 09/30/18 09:08 4.0 /HPF (0.0-6.0) 09/30/18 09:08 4.0 /HPF (0.0-6.0) 09/30/18 09:08 U Epithel Cells (Auto) 14.0 /HPF (0-13.0) H 09/30/18 09:08 1+ /HPF (Negative) 09/30/18 09:08 Few /HPF 09/30/18 09:08 Urine HCG, Qual Negative (Negative) 09/30/18 09:08 Salicylates 10.7 mg/dL (2.8-20.0) 09/30/18 07:05 Presumptive negative 09/30/18 Unknown Presumptive negative 09/30/18 Unknown Acetaminophen < 5.0 ug/mL (10.0-30.0) L 09/30/18 07:05 Ur Barbiturates Screen Presumptive negative 09/30/18 Unknown Ur Phencyclidine Scrn Presumptive negative 09/30/18 Unknown Ur Amphetamines Screen Presumptive positive 09/30/18 Unknown U Benzodiazepines Scrn Presumptive negative 09/30/18 Unknown Presumptive positive 09/30/18 Unknown U Marijuana (THC) Screen Presumptive negative 09/30/18 Unknown Disclamer 09/30/18 Unknown Plasma/Serum Alcohol < 0.01 % (0-0.07) 09/30/18 07:05 Active Medications - Current Medications Current Medications: Generic Name Dose Route Start Last Admin Trade Name Celia PRN Reason Stop Dose Admin Docusate Sodium 100 mg 09/30/18 22:00 10/01/18 21:58 Colace PO 100 mg BID JANETH Administration Enoxaparin Sodium 40 mg 09/30/18 22:00 10/01/18 21:58 Lovenox SUB-Q 40 mg QDAY@2200 JANETH Administration Furosemide 20 mg 09/30/18 18:00 10/02/18 05:22 Lasix IV 20 mg 0600,1800 JANETH Administration Sodium Chloride 1,000 mls @ 200 mls/hr 09/30/18 12:00 10/02/18 04:46 Nacl 0.9% 1000 Ml IV 200 mls/hr DIRECT JANETH Administration Ceftriaxone Sodium 1 gm in 50 mls @ 100 mls/hr 10/01/18 10:00 10/01/18 09:54 Rocephin/Ns 1 Gm/50 Ml IV 100 mls/hr Q24HR JANETH Administration Protocol Potassium Phosphate 40 mmol/ 513.3333 mls @ 83 mls/hr 10/02/18 09:12 Sodium Chloride IV 10/02/18 15:23 ONCE ONE Magnesium Sulfate 2 gm in 50 mls @ 25 mls/hr 10/02/18 09:13 Magnesium Sulfate 2gm/50ml IV 10/02/18 11:12 ONCE ONE Ibuprofen 600 mg 09/30/18 17:28 10/01/18 21:58 Motrin PO 600 mg Q8H PRN Administration Pain Potassium Chloride 40 meq 10/02/18 09:11 [place] PO 10/02/18 09:12 ONCE ONE
[2018-10-02] MEDS: ROCEPHIN/NS 1 GM/50 ML 1 GM/50 ML BAG IV SCH (10:06)
[2018-10-02] MEDS: COLACE PO SCH ×2 (10:06→21:24)
[2018-10-02] MEDS: IBUPROFEN PO PRN ×2 (12:08→21:24)
--- NOTE | 2018-10-02 18:42 | Progress Note ---
Subjective - Reason for Consult Consult date: 10/02/18 Reason for consult: follow up - Chief Complaint Chief complaint: "I feel bad." 48-year-old female with a past medical history of bipolar disorder and polysubstance abuse presents to the hospital with complaints of suicidal ideation and drug abuse. She was seen on the medical floor. She has been admitted with rhabdomyolysis and has elevated liver enzymes. Patient was recently incarcerated in [facility] for the past 4 months ago was released 2 weeks ago. She does not have a place to live since being released from [facility]. She has been using multiple drugs but most recently reports methamphetamine use before arrival to the ER. She drinks alcohol daily but denies a history of withdrawal tremors or seizures. She is tearful today and wants to know when she can get some help at a psychiatric facility. She is not medically cleared. She wants to be back on meds. Her CK is trending down. She continues to intermittently respond to internal stimuli. She reports suicidal ideation to overdose. - Exam Orientation: time, place, person Affect: depressed Mood: congruent with affect Thought content: other (suicidal ideation with a plan. no HI) Thought Process: Intact Perceptions: auditory, hallucinations (responding to internal stimuli) Speech: other (loud) Concentration: distractible Motor activity: restless Level of consciousness: alert Memory: Intact Sleep Symptoms: Insomnia Appetite: decreased Interaction: irritable Assessment and plan: Impression: bipolar disorder, current episode depressed methamphetamine use, r/o amphetamine induced psychotic disorder cocaine use disorder medical team is addressing rhabdo and liver. She has hep c Recommendation: continue 1013 plan to restart wellbutrin and lamictal since these worked well for her previously . 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 plan to restart seroquel once ck has normalized dispo: once medically cleared, inpatient psychiatric facility will staff with Dr. St Mental Status Exam - Vital signs Last Vital Signs Temp 98.4 F 10/02/18 16:46 Pulse 72 10/02/18 16:46 Resp 18 10/02/18 16:46 BP 93/55 10/02/18 16:46 Pulse Ox 97 10/02/18 16:46
[2018-10-02] MEDS: LOVENOX SUB-Q SCH (21:25)
[2018-10-02] MEDS: LaMICtal PO SCH (21:34)
[2018-10-03] MEDS: NACL 0.9% 1000 ML 1,000 ML IV SCH ×4 (01:06→23:23)
[2018-10-03] MEDS: LASIX IV SCH ×2 (05:53→18:07)
[2018-10-03] MEDS: IBUPROFEN PO PRN ×2 (06:11→17:04)
[2018-10-03 06:36] LABS: BUN/Creatinine Ratio 10; Blood Urea Nitrogen 6 mg/dL (7-17); Calcium 6.7 mg/dL (8.4-10.2); Hemolysis Index 2
[2018-10-03 09:02] LABS: Alanine Aminotransferase 90 units/L (7-56)
[2018-10-03] MEDS: ROCEPHIN/NS 1 GM/50 ML 1 GM/50 ML BAG IV SCH (09:35)
[2018-10-03] MEDS: WELLBUTRIN XL PO SCH (09:35)
[2018-10-03] MEDS: COLACE PO SCH ×2 (09:35→21:53)
--- NOTE | 2018-10-03 10:49 | Progress Note ---
Subjective - Reason for Consult Consult date: 10/03/18 Reason for consult: Psychiatry Follow-up - Chief Complaint Chief complaint: "I'm trying to get better" 48-year-old female with a past medical history of bipolar disorder and polysubstance abuse presents to the hospital with complaints of suicidal ideation and drug abuse. Today the patient is calm and cooperative during the assessment. She stated that her "drug use" is the cause for her life to be a "drag." She stated that rehab services is something she wants to do when discharged. She would not confirm or deny SI's. She did acknowledge a previous suicide attempt in the past. She denies HI's and AVH's. She denies any side effects of her medications. Mental Status Exam - Vital signs Last Vital Signs Temp 98.6 F 10/03/18 05:16 Pulse 71 10/03/18 05:16 Resp 18 10/03/18 06:11 BP 103/66 10/03/18 05:16 Pulse Ox 98 10/03/18 05:16 - Exam Narrative exam: MSE: Appearance: calm, cooperative Behavior: regular eye contact Speech: regular rate and tone Mood: withdrawn Affect: congruent to mood Thought Process: linear Thought Content: denies HI's and AVH's Motor Activity: sitting up in the bed Cognition: A/O x 3 Insight: fair Judgment: variable Assessment and Plan Impression: Bipolar DO. Substance Use DO (cocaine/amphetamine). Today the patient is calm and cooperative during the assessment. LF's trending down. Recommendation/Plan: Continue 1013, Lamictal 25 mg Po HS for mood and Wellbutrin 150 mg PO daily for depression. Discussed SJS with the patient, she verbalized understanding. Discussed possible suicidality/medication induced anat with the patient reference Wellbitrin, she verbalized understanding. Discussed the importance to abstain from recreational drug use with the patient, she verbalized understanding. Dispo: Once the patient is medically clear, proper dispo will be determined. Will staff with Dr Cherry St.
--- NOTE | 2018-10-03 16:35 | Progress Note ---
Assessment and Plan Assessment and plan: -48-year-old obese female patient with history of bipolar disorder polysubstance abuse was admitted through emergency room with severe depression and suicidal thoughts and ideation, Patient was admitted placed on 1013 status being symptomatically managed evaluated by psych Patient's multiple electrolyte abnormalities noted and corrected Patient is medically stable for discharge Discharge diagnosis: --Depression/Suicidal ideation; 1013 Psych following--Hypokalemia; hypomagnesemia: Hypophosphatemia: Corrected --Rhabdomyolysis with preserved renal function CK levels trendin- 2102- 2347 - 1190 Continue IV hydration, input output monitoring --Acute psychosis; 1013. Psych evaluation --RAMO; secondary to ATN, resolved --Hyponatremia; replacement therapy, corrected --UTI per urine analysis: Empiric antibiotics, cultures negative to date --Substance abuse; marijuana/amphetamines History of cocaine use tobacco and alcohol, Counseling strongly advised to quit substance abuse Drug Rehabilitation psych evaluation --Tobacco use; smoking cessation nicotine patch as needed --DVT prophylaxis; Lovenox Patient is medically stable for discharge home versus inpatient psych facility Disposition: Inpatient psych placement. 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 Hospitalist Physical - Constitutional Vitals: Temp Pulse Resp BP Pulse Ox 98.3 F 71 16 138/66 98 10/03/18 12:24 10/03/18 05:16 10/03/18 12:24 10/03/18 12:24 10/03/18 05:16 General appearance: Present: no acute distress, well-nourished, obese - EENT Eyes: Present: PERRL, EOM intact - Neck Neck: Present: supple, normal ROM - Respiratory Respiratory effort: normal Respiratory: bilateral: diminished, negative: rales, rhonchi, wheezing - Cardiovascular Rhythm: regular Heart Sounds: Present: S1 & S2 - Extremities Extremities: no ischemia, pulses intact - Abdominal General gastrointestinal: soft, non-tender, non-distended, normal bowel sounds - Integumentary Integumentary: Present: clear, warm - Psychiatric Psychiatric: appropriate mood/affect, cooperative - Neurologic Neurologic: CNII-XII intact, moves all extremities Results - Labs CBC & Chem 7: 10/01/18 05:26 10/03/18 04:52 Labs: Laboratory Last Values WBC 4.4 K/mm3 (4.5-11.0) L 10/01/18 05:26 RBC 3.01 M/mm3 (3.65-5.03) L 10/01/18 05:26 Hgb 9.7 gm/dl (10.1-14.3) L 10/01/18 05:26 Hct 27.4 % (30.3-42.9) L D 10/01/18 05:26 MCV 91 fl (79-97) 10/01/18 05:26 MCH 32 pg (28-32) 10/01/18 05:26 MCHC 36 % (30-34) H 10/01/18 05:26 RDW 13.4 % (13.2-15.2) 10/01/18 05:26 Plt Count 228 K/mm3 (140-440) 10/01/18 05:26 Lymph % (Auto) 21.2 % (13.4-35.0) 09/30/18 07:05 [place] % (Auto) 9.0 % (0.0-7.3) H 09/30/18 07:05 Eos % (Auto) 2.8 % (0.0-4.3) 09/30/18 07:05 Baso % (Auto) 0.5 % (0.0-1.8) 09/30/18 07:05 Lymph # 2.0 K/mm3 (1.2-5.4) 09/30/18 07:05 [place] # 0.9 K/mm3 (0.0-0.8) H 09/30/18 07:05 Eos # 0.3 K/mm3 (0.0-0.4) 09/30/18 07:05 Baso # 0.0 K/mm3 (0.0-0.1) 09/30/18 07:05 Add Manual Diff Complete 10/01/18 05:26 Total Counted 100 10/01/18 05:26 Seg Neutrophils % 66.5 % (40.0-70.0) 09/30/18 07:05 Seg Neuts % (Manual) 54.0 % (40.0-70.0) 10/01/18 05:26 3.0 % 10/01/18 05:26 29.0 % (13.4-35.0) 10/01/18 05:26 Reactive Lymphs % (Man) 0 % 10/01/18 05:26 7.0 % (0.0-7.3) 10/01/18 05:26 7.0 % (0.0-4.3) H 10/01/18 05:26 0 % (0.0-1.8) 10/01/18 05:26 0 % 10/01/18 05:26 0 % 10/01/18 05:26 0 % 10/01/18 05:26 0 % 10/01/18 05:26 Nucleated RBC % Not Reportable 10/01/18 05:26 Seg Neutrophils # 6.4 K/mm3 (1.8-7.7) 09/30/18 07:05 Seg Neutrophils # Man 2.4 K/mm3 (1.8-7.7) 10/01/18 05:26 Band Neutrophils # 0.1 K/mm3 10/01/18 05:26 1.3 K/mm3 (1.2-5.4) 10/01/18 05:26 Abs React Lymphs (Man) 0.0 K/mm3 10/01/18 05:26 0.3 K/mm3 (0.0-0.8) 10/01/18 05:26 0.3 K/mm3 (0.0-0.4) 10/01/18 05:26 0.0 K/mm3 (0.0-0.1) 10/01/18 05:26 0.0 K/mm3 10/01/18 05:26 0.0 K/mm3 10/01/18 05:26 0.0 K/mm3 10/01/18 05:26 Blast Cells # 0.0 K/mm3 10/01/18 05:26 WBC Morphology Not Reportable 10/01/18 05:26 Hypersegmented Neuts Not Reportable 10/01/18 05:26 Hyposegmented Neuts Not Reportable 10/01/18 05:26 Hypogranular Neuts Not Reportable 10/01/18 05:26 Not Reportable 10/01/18 05:26 Not Reportable 10/01/18 05:26 Not Reportable 10/01/18 05:26 Not Reportable 10/01/18 05:26 Not Reportable 10/01/18 05:26 Not Reportable 10/01/18 05:26 Appears normal 10/01/18 05:26 Not Reportable 10/01/18 05:26 Plt Clumps, EDTA Not Reportable 10/01/18 05:26 Not Reportable 10/01/18 05:26 Not Reportable 10/01/18 05:26 Not Reportable 10/01/18 05:26 Plt Morphology Comment Not Reportable 10/01/18 05:26 RBC Morphology Not Reportable 10/01/18 05:26 Dimorphic RBCs Not Reportable 10/01/18 05:26 Not Reportable 10/01/18 05:26 Not Reportable 10/01/18 05:26 Not Reportable 10/01/18 05:26 1+ 10/01/18 05:26 Not Reportable 10/01/18 05:26 Not Reportable 10/01/18 05:26 Not Reportable 10/01/18 05:26 Not Reportable 10/01/18 05:26 Not Reportable 10/01/18 05:26 Not Reportable 10/01/18 05:26 Not Reportable 10/01/18 05:26 Not Reportable 10/01/18 05:26 Not Reportable 10/01/18 05:26 Not Reportable 10/01/18 05:26 Not Reportable 10/01/18 05:26 Not Reportable 10/01/18 05:26 Not Reportable 10/01/18 05:26 Not Reportable 10/01/18 05:26 Not Reportable 10/01/18 05:26 Acanthocytes (Spur) Not Reportable 10/01/18 05:26 Rouleaux Not Reportable 10/01/18 05:26 Not Reportable 10/01/18 05:26 Not Reportable 10/01/18 05:26 Not Reportable 10/01/18 05:26 Not Reportable 10/01/18 05:26 Hem Pathologist Commnt No 10/01/18 05:26 Sodium 144 mmol/L (137-145) 10/03/18 04:52 Potassium 3.9 mmol/L (3.6-5.0) D 10/03/18 04:52 Chloride 109.0 mmol/L (98-107) H 10/03/18 04:52 Carbon Dioxide 26 mmol/L (22-30) 05/13/19 04:52 13 mmol/L 10/03/18 04:52 BUN 6 mg/dL (7-17) L 10/03/18 04:52 0.6 mg/dL (0.7-1.2) L 10/03/18 04:52 Estimated GFR > 60 ml/min 10/03/18 04:52 10 % 10/03/18 04:52 Glucose 96 mg/dL (65-100) 10/03/18 04:52 Calcium 6.7 mg/dL (8.4-10.2) L 10/03/18 04:52 Phosphorus 2.60 mg/dL (2.5-4.5) D 10/03/18 04:52 Magnesium 1.80 mg/dL (1.7-2.3) 10/03/18 04:52 0.20 mg/dL (0.1-1.2) 10/01/18 05:26 AST 83 units/L (5-40) H 10/03/18 08:28 ALT 90 units/L (7-56) H 10/03/18 08:28 53 units/L (35-129) 10/03/18 08:28 1196 units/L (30-135) H 10/03/18 04:52 5.1 g/dL (6.3-8.2) L 10/01/18 05:26 2.6 g/dL (3.9-5) L 10/01/18 05:26 1.0 % 10/01/18 05:26 Yellow (Yellow) 09/30/18 09:08 Slightly cloudy (Clear) 09/30/18 09:08 6.0 (5.0-7.0) 09/30/18 09:08 Ur Specific [place] 1.008 (1.003-1.030) 09/30/18 09:08 30 mg/dl mg/dL (Negative) 09/30/18 09:08 Neg mg/dL (Negative) 09/30/18 09:08 Trace mg/dL (Negative) 09/30/18 09:08 Moderate (Negative) A 09/30/18 09:08 Neg (Negative) 09/30/18 09:08 Neg (Negative) 09/30/18 09:08 < 2.0 mg/dL (<2.0) 09/30/18 09:08 Ur Leukocyte Esterase Large (Negative) 09/30/18 09:08 4.0 /HPF (0.0-6.0) 09/30/18 09:08 4.0 /HPF (0.0-6.0) 09/30/18 09:08 U Epithel Cells (Auto) 14.0 /HPF (0-13.0) H 09/30/18 09:08 1+ /HPF (Negative) 09/30/18 09:08 Few /HPF 09/30/18 09:08 Urine HCG, Qual Negative (Negative) 09/30/18 09:08 Salicylates 10.7 mg/dL (2.8-20.0) 09/30/18 07:05 Presumptive negative 09/30/18 Unknown Presumptive negative 09/30/18 Unknown Acetaminophen < 5.0 ug/mL (10.0-30.0) L 09/30/18 07:05 Ur Barbiturates Screen Presumptive negative 09/30/18 Unknown Ur Phencyclidine Scrn Presumptive negative 09/30/18 Unknown Ur Amphetamines Screen Presumptive positive 09/30/18 Unknown U Benzodiazepines Scrn Presumptive negative 09/30/18 Unknown Presumptive positive 09/30/18 Unknown U Marijuana (THC) Screen Presumptive negative 09/30/18 Unknown Disclamer 09/30/18 Unknown Plasma/Serum Alcohol < 0.01 % (0-0.07) 09/30/18 07:05 Active Medications - Current Medications Current Medications: Generic Name Dose Route Start Last Admin Trade Name Freq PRN Reason Stop Dose Admin Bupropion HCl 150 mg 10/03/18 10:00 10/03/18 09:35 Wellbutrin Xl PO 150 mg QDAY JANETH Administration Docusate Sodium 100 mg 09/30/18 22:00 10/03/18 09:35 Colace PO 100 mg BID JANETH Administration Enoxaparin Sodium 40 mg 09/30/18 22:00 10/02/18 21:25 Lovenox SUB-Q 40 mg QDAY@2200 JANETH Administration Furosemide 20 mg 09/30/18 18:00 10/03/18 05:53 Lasix IV 20 mg 0600,1800 JANETH Administration Sodium Chloride 1,000 mls @ 200 mls/hr 09/30/18 12:00 10/03/18 11:19 Nacl 0.9% 1000 Ml IV 200 mls/hr DIRECT JANETH Administration Ceftriaxone Sodium 1 gm in 50 mls @ 100 mls/hr 10/01/18 10:00 10/03/18 09:35 Rocephin/Ns 1 Gm/50 Ml IV 100 mls/hr Q24HR JANETH Administration Protocol Ibuprofen 600 mg 09/30/18 17:28 10/03/18 06:11 Motrin PO 600 mg Q8H PRN Administration Pain Lamotrigine 25 mg 10/02/18 22:00 10/02/18 21:34 Lamictal PO 25 mg HS JANETH Administration
[2018-10-03] MEDS: LaMICtal PO SCH (21:53)
[2018-10-03] MEDS: LOVENOX SUB-Q SCH (21:53)
[2018-10-04 05:28] LABS: Basophils % (Auto) 0.8 % (0.0-1.8); Eosinophils # (Auto) 0.2 K/mm3 (0.0-0.4); Eosinophils % (Auto) 4.6 % (0.0-4.3); Hematocrit 30.7 % (30.3-42.9); Hemoglobin 10.3 gm/dl (10.1-14.3); Lymphocytes # (Auto) 1.3 K/mm3 (1.2-5.4); Lymphocytes % (Auto) 30.1 % (13.4-35.0); Mean Corpuscular HGB Conc 34 % (30-34); Mean Corpuscular Volume 95 fl (79-97); Monocytes # (Auto) 0.5 K/mm3 (0.0-0.8); Monocytes % (Auto) 12.6 % (0.0-7.3); Platelet Count 260 K/mm3 (140-440); Red Blood Count 3.22 M/mm3 (3.65-5.03); Red Cell Distribution Width 14.2 % (13.2-15.2)
[2018-10-04 05:39] LABS: Alanine Aminotransferase 69 units/L (7-56); Albumin 2.9 g/dL (3.9-5); BUN/Creatinine Ratio 13; Blood Urea Nitrogen 9 mg/dL (7-17); Calcium 7.3 mg/dL (8.4-10.2); Hemolysis Index 5
[2018-10-04] MEDS: NACL 0.9% 1000 ML 1,000 ML IV SCH (06:06)
[2018-10-04] MEDS: LASIX IV SCH ×2 (06:09→17:29)
--- NOTE | 2018-10-04 09:40 | Discharge Summary ---
Providers - Providers Date of Admission: 09/30/18 10:22 Attending physician: ZOILA REYNOLDS 09/30/18 14:49 psychiatry consult [Consult to Mental Health] [CONS] Routine Reason For Exam: suicidal ideation/1013 Place consult to:: manager oncology//[facility] Notified:: [facility] Phone number called:: [phone] Was contact made?: Yes If yes, spoke with:: GISELLE Time called:: 16:41 Primary care physician: JEROD CELAYA MD Hospitalization Condition: Stable Disposition: DC-30 STILL A PATIENT Core Measure Documentation - Palliative Care Palliative Care/ Comfort Measures: Not Applicable Exam - Constitutional Vitals: Temp Pulse Resp BP Pulse Ox 98.3 F 66 20 113/69 96 10/04/18 05:20 10/04/18 05:20 10/04/18 05:20 10/04/18 05:20 10/04/18 05:20 Plan Follow up with: JEROD GUZMAN MD [Primary Care Provider] - 7 Days
--- NOTE | 2018-10-04 09:52 | Progress Note ---
Subjective - Reason for Consult Consult date: 10/04/18 Reason for consult: Psychiatry Follow-up - Chief Complaint Chief complaint: "I'm trying to get better" 48-year-old female with a past medical history of bipolar disorder and polysubstance abuse presents to the hospital with complaints of suicidal ideation and drug abuse. Today the patient is calm and cooperative during the assessment. She stated that she want to get better and have the will to stay off drugs. She denies SI/Hi's and AVH's. She denies any side effects of her medications. Mental Status Exam - Vital signs Last Vital Signs Temp 98.3 F 10/04/18 05:20 Pulse 66 10/04/18 05:20 Resp 20 10/04/18 05:20 BP 113/69 10/04/18 05:20 Pulse Ox 96 10/04/18 05:20 - Exam Narrative exam: MSE: Appearance: calm, cooperative Behavior: regular eye contact Speech: regular rate and tone Mood: "okay" Affect: congruent to mood Thought Process: linear Thought Content: denies SI/HI's and AVH's Motor Activity: sitting up in the bed Cognition: A/O x 3 Insight: fair Judgment: variable to fair Assessment and Plan Impression: Bipolar DO. Substance Use DO (cocaine/amphetamine). Today the patient is calm and cooperative during the assessment. LF's trending down. Recommendation/Plan: Reevaluate the patient's 1013 in 24 hours. Increase Lamictal to 50 mg PO HS for mood and continue Wellbutrin 150 mg PO daily for depression. Discussed SJS with the patient, she verbalized understanding. Discussed possible suicidality/medication induced anat with the patient reference Wellbitrin, she verbalized understanding. Discussed the importance to abstain from recreational drug use with the patient, she verbalized understanding. Dispo: If the patient's 1013 is rescinded in 24 hours, she can follow up with [facility] for outpatient psy services. Staffed with Dr Cherry St.
[2018-10-04] MEDS: COLACE PO SCH ×2 (11:17→21:54)
[2018-10-04] MEDS: IBUPROFEN PO PRN (11:17)
[2018-10-04] MEDS: ROCEPHIN/NS 1 GM/50 ML 1 GM/50 ML BAG IV SCH (11:17)
[2018-10-04] MEDS: WELLBUTRIN XL PO SCH (11:18)
--- NOTE | 2018-10-04 13:12 | Progress Note ---
Assessment and Plan Assessment and plan: -48-year-old female patient with history of bipolar disorder polysubstance abuse was admitted through emergency room with severe depression and suicidal thoughts and ideation, Patient was admitted placed on 1013 status being symptomatically managed evaluated by psych, Patient's multiple electrolyte abnormalities noted and corrected Patient is medically stable for discharge Discharge diagnosis: --Depression/Suicidal ideation; 1013, Psych following --Hypokalemia; hypomagnesemia: Hypophosphatemia: Corrected --Rhabdomyolysis with preserved renal function CK levels trendin- 7582- 1137 - 1190 -691 Continue IV hydration, input output monitoring --Acute psychosis; 1013. Psych evaluation --RAMO; secondary to ATN, resolved --Hyponatremia; replacement therapy, corrected --UTI per urine analysis: s/p Empiric antibiotics , cultures negative to date --Substance abuse; marijuana/amphetamines History of cocaine use tobacco and alcohol, Counseling strongly advised to quit substance abuse Drug Rehabilitation psych evaluation --Tobacco use; smoking cessation nicotine patch as needed --DVT prophylaxis; Lovenox Disposition:Patient is medically stable for discharge home versus inpatient psych facility History Interval history: Patient seen and examined medical records reviewed no new events reported by the nursing Patient alert awake oriented 3, denies suicidal thoughts or ideation, 1013 status Hospitalist Physical - Constitutional Vitals: Temp Pulse Resp BP Pulse Ox 98.3 F 66 20 113/69 96 10/04/18 05:20 10/04/18 05:20 10/04/18 05:20 10/04/18 05:20 10/04/18 05:20 General appearance: Present: no acute distress, well-nourished, obese - EENT Eyes: Present: PERRL, EOM intact - Neck Neck: Present: supple, normal ROM - Respiratory Respiratory effort: normal Respiratory: bilateral: diminished, negative: rales, rhonchi, wheezing - Cardiovascular Rhythm: regular Heart Sounds: Present: S1 & S2 - Extremities Extremities: no ischemia, No edema - Abdominal General gastrointestinal: soft, non-tender, non-distended - Integumentary Integumentary: Present: clear, warm - Psychiatric Psychiatric: appropriate mood/affect, cooperative - Neurologic Neurologic: moves all extremities Results - Labs CBC & Chem 7: 10/04/18 04:25 10/04/18 04:25 Labs: Laboratory Last Values WBC 4.3 K/mm3 (4.5-11.0) L 10/04/18 04:25 RBC 3.22 M/mm3 (3.65-5.03) L 10/04/18 04:25 Hgb 10.3 gm/dl (10.1-14.3) 10/04/18 04:25 Hct 30.7 % (30.3-42.9) 10/04/18 04:25 MCV 95 fl (79-97) 10/04/18 04:25 MCH 32 pg (28-32) 10/04/18 04:25 MCHC 34 % (30-34) 10/04/18 04:25 RDW 14.2 % (13.2-15.2) 10/04/18 04:25 Plt Count 260 K/mm3 (140-440) 10/04/18 04:25 Lymph % (Auto) 30.1 % (13.4-35.0) 10/04/18 04:25 [place] % (Auto) 12.6 % (0.0-7.3) H 10/04/18 04:25 Eos % (Auto) 4.6 % (0.0-4.3) H 10/04/18 04:25 Baso % (Auto) 0.8 % (0.0-1.8) 10/04/18 04:25 Lymph # 1.3 K/mm3 (1.2-5.4) 10/04/18 04:25 [place] # 0.5 K/mm3 (0.0-0.8) 10/04/18 04:25 Eos # 0.2 K/mm3 (0.0-0.4) 10/04/18 04:25 Baso # 0.0 K/mm3 (0.0-0.1) 10/04/18 04:25 Add Manual Diff Complete 10/01/18 05:26 Total Counted 100 10/01/18 05:26 Seg Neutrophils % 51.9 % (40.0-70.0) 10/04/18 04:25 Seg Neuts % (Manual) 54.0 % (40.0-70.0) 10/01/18 05:26 3.0 % 10/01/18 05:26 29.0 % (13.4-35.0) 10/01/18 05:26 Reactive Lymphs % (Man) 0 % 10/01/18 05:26 7.0 % (0.0-7.3) 10/01/18 05:26 7.0 % (0.0-4.3) H 10/01/18 05:26 0 % (0.0-1.8) 10/01/18 05:26 0 % 10/01/18 05:26 0 % 10/01/18 05:26 0 % 10/01/18 05:26 0 % 10/01/18 05:26 Nucleated RBC % Not Reportable 10/01/18 05:26 Seg Neutrophils # 2.2 K/mm3 (1.8-7.7) 10/04/18 04:25 Seg Neutrophils # Man 2.4 K/mm3 (1.8-7.7) 10/01/18 05:26 Band Neutrophils # 0.1 K/mm3 10/01/18 05:26 1.3 K/mm3 (1.2-5.4) 10/01/18 05:26 Abs React Lymphs (Man) 0.0 K/mm3 10/01/18 05:26 0.3 K/mm3 (0.0-0.8) 10/01/18 05:26 0.3 K/mm3 (0.0-0.4) 10/01/18 05:26 0.0 K/mm3 (0.0-0.1) 10/01/18 05:26 0.0 K/mm3 10/01/18 05:26 0.0 K/mm3 10/01/18 05:26 0.0 K/mm3 10/01/18 05:26 Blast Cells # 0.0 K/mm3 10/01/18 05:26 WBC Morphology Not Reportable 10/01/18 05:26 Hypersegmented Neuts Not Reportable 10/01/18 05:26 Hyposegmented Neuts Not Reportable 10/01/18 05:26 Hypogranular Neuts Not Reportable 10/01/18 05:26 Not Reportable 10/01/18 05:26 Not Reportable 10/01/18 05:26 Not Reportable 10/01/18 05:26 Not Reportable 10/01/18 05:26 Not Reportable 10/01/18 05:26 Not Reportable 10/01/18 05:26 Appears normal 10/01/18 05:26 Not Reportable 10/01/18 05:26 Plt Clumps, EDTA Not Reportable 10/01/18 05:26 Not Reportable 10/01/18 05:26 Not Reportable 10/01/18 05:26 Not Reportable 10/01/18 05:26 Plt Morphology Comment Not Reportable 10/01/18 05:26 RBC Morphology Not Reportable 10/01/18 05:26 Dimorphic RBCs Not Reportable 10/01/18 05:26 Not Reportable 10/01/18 05:26 Not Reportable 10/01/18 05:26 Not Reportable 10/01/18 05:26 1+ 10/01/18 05:26 Not Reportable 10/01/18 05:26 Not Reportable 10/01/18 05:26 Not Reportable 10/01/18 05:26 Not Reportable 10/01/18 05:26 Not Reportable 10/01/18 05:26 Not Reportable 10/01/18 05:26 Not Reportable 10/01/18 05:26 Not Reportable 10/01/18 05:26 Not Reportable 10/01/18 05:26 Not Reportable 10/01/18 05:26 Not Reportable 10/01/18 05:26 Not Reportable 10/01/18 05:26 Not Reportable 10/01/18 05:26 Not Reportable 10/01/18 05:26 Not Reportable 10/01/18 05:26 Acanthocytes (Spur) Not Reportable 10/01/18 05:26 Rouleaux Not Reportable 10/01/18 05:26 Not Reportable 10/01/18 05:26 Not Reportable 10/01/18 05:26 Not Reportable 10/01/18 05:26 Not Reportable 10/01/18 05:26 Hem Pathologist Commnt No 10/01/18 05:26 Sodium 144 mmol/L (137-145) 10/04/18 04:25 Potassium 4.3 mmol/L (3.6-5.0) 10/04/18 04:25 Chloride 106.1 mmol/L (98-107) 10/04/18 04:25 Carbon Dioxide 30 mmol/L (22-30) 10/04/18 04:25 12 mmol/L 10/04/18 04:25 BUN 9 mg/dL (7-17) 10/04/18 04:25 0.7 mg/dL (0.7-1.2) 10/04/18 04:25 Estimated GFR > 60 ml/min 10/04/18 04:25 13 % 10/04/18 04:25 Glucose 104 mg/dL (65-100) H 10/04/18 04:25 Calcium 7.3 mg/dL (8.4-10.2) L 10/04/18 04:25 Phosphorus 2.60 mg/dL (2.5-4.5) D 10/03/18 04:52 Magnesium 1.50 mg/dL (1.7-2.3) L 10/04/18 04:25 < 0.20 mg/dL (0.1-1.2) 10/04/18 04:25 AST 56 units/L (5-40) H 10/04/18 04:25 ALT 69 units/L (7-56) H 10/04/18 04:25 58 units/L (35-129) 10/04/18 04:25 691 units/L (30-135) H 10/04/18 04:25 5.5 g/dL (6.3-8.2) L 10/04/18 04:25 2.9 g/dL (3.9-5) L 10/04/18 04:25 1.1 % 10/04/18 04:25 Yellow (Yellow) 09/30/18 09:08 Slightly cloudy (Clear) 09/30/18 09:08 6.0 (5.0-7.0) 09/30/18 09:08 Ur Specific [place] 1.008 (1.003-1.030) 09/30/18 09:08 30 mg/dl mg/dL (Negative) 09/30/18 09:08 Neg mg/dL (Negative) 09/30/18 09:08 Trace mg/dL (Negative) 09/30/18 09:08 Moderate (Negative) A 09/30/18 09:08 Neg (Negative) 09/30/18 09:08 Neg (Negative) 09/30/18 09:08 < 2.0 mg/dL (<2.0) 09/30/18 09:08 Ur Leukocyte Esterase Large (Negative) 09/30/18 09:08 4.0 /HPF (0.0-6.0) 09/30/18 09:08 4.0 /HPF (0.0-6.0) 09/30/18 09:08 U Epithel Cells (Auto) 14.0 /HPF (0-13.0) H 09/30/18 09:08 1+ /HPF (Negative) 09/30/18 09:08 Few /HPF 09/30/18 09:08 Urine HCG, Qual Negative (Negative) 09/30/18 09:08 Salicylates 10.7 mg/dL (2.8-20.0) 09/30/18 07:05 Presumptive negative 09/30/18 Unknown Presumptive negative 09/30/18 Unknown Acetaminophen < 5.0 ug/mL (10.0-30.0) L 09/30/18 07:05 Ur Barbiturates Screen Presumptive negative 09/30/18 Unknown Ur Phencyclidine Scrn Presumptive negative 09/30/18 Unknown Ur Amphetamines Screen Presumptive positive 09/30/18 Unknown U Benzodiazepines Scrn Presumptive negative 09/30/18 Unknown Presumptive positive 09/30/18 Unknown U Marijuana (THC) Screen Presumptive negative 09/30/18 Unknown Disclamer 09/30/18 Unknown Plasma/Serum Alcohol < 0.01 % (0-0.07) 09/30/18 07:05 Active Medications - Current Medications Current Medications: Generic Name Dose Route Start Last Admin Trade Name Freq PRN Reason Stop Dose Admin Bupropion HCl 150 mg 10/03/18 10:00 10/04/18 11:18 Wellbutrin Xl PO 150 mg QDAY JANETH Administration Docusate Sodium 100 mg 09/30/18 22:00 10/04/18 11:17 Colace PO 100 mg BID JANETH Administration Enoxaparin Sodium 40 mg 09/30/18 22:00 10/03/18 21:53 Lovenox SUB-Q 40 mg QDAY@2200 JANETH Administration Furosemide 20 mg 09/30/18 18:00 10/04/18 06:09 Lasix IV 20 mg 0600,1800 JANETH Administration Sodium Chloride 1,000 mls @ 200 mls/hr 09/30/18 12:00 10/04/18 06:06 Nacl 0.9% 1000 Ml IV 200 mls/hr DIRECT JANETH Administration Ceftriaxone Sodium 1 gm in 50 mls @ 100 mls/hr 10/01/18 10:00 10/04/18 11:17 Rocephin/Ns 1 Gm/50 Ml IV 100 mls/hr Q24HR JANETH Administration Protocol Magnesium Sulfate 2 gm in 50 mls @ 25 mls/hr 10/04/18 13:10 Magnesium Sulfate 2gm/50ml IV 10/04/18 15:09 ONCE ONE Ibuprofen 600 mg 09/30/18 17:28 10/04/18 11:17 Motrin PO 600 mg Q8H PRN Administration Pain Lamotrigine 25 mg 10/02/18 22:00 10/03/18 21:53 Lamictal PO 25 mg HS JANETH Administration
[2018-10-04] MEDS ORDERED: MAGNESIUM SULFATE 2GM/50ML 2 GM/50 ML BAG IV ONE (14:00)
[2018-10-04] MEDS: LOVENOX SUB-Q SCH (21:54)
[2018-10-04] MEDS ORDERED: LaMICtal PO SCH (22:00)
[2018-10-05] MEDS: LASIX IV SCH (05:31)
[2018-10-05 05:57] LABS: Alanine Aminotransferase 68 units/L (7-56); Albumin 3.3 g/dL (3.9-5)
[2018-10-05 06:00] LABS: Bilirubin,Direct < 0.2 mg/dL (0-0.2)
[2018-10-05] MEDS: COLACE PO SCH (10:50)
[2018-10-05] MEDS: WELLBUTRIN XL PO SCH (10:50)
--- NOTE | 2018-10-05 13:24 | Discharge Summary ---
Providers - Providers Date of Admission: 09/30/18 10:22 Attending physician: GAGANDEEP GARCIA MD 09/30/18 14:49 psychiatry consult [Consult to Mental Health] [CONS] Routine Reason For Exam: suicidal ideation/1013 Place consult to:: operations lieutenant//MENTAL HEALTH Notified:: MENTAL HEALTH Phone number called:: [phone] Was contact made?: Yes If yes, spoke with:: GISELLE Time called:: 16:41 [facility] Condition: Stable Hospital course: -48-year-old female patient with history of bipolar disorder polysubstance abuse was admitted through emergency room with severe depression and suicidal thoughts and ideation, Patient was admitted placed on 1013 status being symptomatically managed evaluated by psych, Patient's multiple electrolyte abnormalities noted and corrected -She received IV fluid hydration, her electrolytes were replaced. She was managed by psychiatry. Her medications were optimized. She seemed antibiotics for UTI. -She was counseled about tobacco cessation for greater than 10 minutes. She was also counseled about polysubstance abuse namely marijuana and amphetamines -The patient clinically improved and was no longer suicidal, psychiatry discontinued 1013 and deemed her safe for discharge and outpatient follow-up. Discharge diagnosis: --Depression/Suicidal ideation; 1013, Psych following --Hypokalemia; hypomagnesemia: Hypophosphatemia: Corrected --Rhabdomyolysis with preserved renal function --Acute psychosis; 1013. Psych evaluation --RAMO; secondary to ATN, resolved --Hyponatremia secondary to hypovolemia; replacement therapy, corrected --UTI --Substance abuse; marijuana/amphetamines History of cocaine use tobacco and alcohol, --Tobacco use; smoking cessation nicotine patch as needed Disposition: - TO HOME OR SELFCARE Time spent for discharge: 33 mins Core Measure Documentation - Palliative Care Palliative Care/ Comfort Measures: Not Applicable - Core Measures Any of the following diagnoses?: none Exam - Constitutional Vitals: Temp Pulse Resp BP Pulse Ox 98.3 F 70 18 82/52 98 10/05/18 12:06 10/05/18 12:06 10/05/18 12:06 10/05/18 12:06 10/05/18 12:06 General appearance: Present: no acute distress, well-nourished - EENT Eyes: Present: PERRL ENT: hearing intact, clear oral mucosa - Neck Neck: Present: supple, normal ROM - Respiratory Respiratory effort: normal Respiratory: bilateral: CTA - Cardiovascular Heart Sounds: Present: S1 & S2. Absent: rub, click - Extremities Extremities: pulses symmetrical, No edema Peripheral Pulses: within normal limits - Abdominal General gastrointestinal: Present: soft, non-tender, non-distended, normal bowel sounds Female genitourinary: Present: normal - Integumentary Integumentary: Present: clear, warm, dry - Musculoskeletal Musculoskeletal: gait normal, strength equal bilaterally - Psychiatric Psychiatric: appropriate mood/affect, intact judgment & insight - Neurologic Neurologic: CNII-XII intact, moves all extremities Plan [facility] Provider[facility] - 7 Days Prescriptions: Docusate Sodium [Colace CAP] 100 mg PO BID #60 capsule lamoTRIgine [LaMICtal] 50 mg PO HS #30 tablet Furosemide [Lasix] 20 mg PO QDAY #30 tablet buPROPion XL [Wellbutrin XL] 150 mg PO QDAY #30 tablet
--- NOTE | 2018-10-05 13:25 | Progress Note ---
Subjective - Reason for Consult Consult date: 10/05/18 Reason for consult: Psychiatric Follow-up Evaluation - Chief Complaint Chief complaint: "I'm fine." Patient is a 48-year-old female with a past medical history of bipolar disorder and polysubstance abuse presents to the hospital with complaints of suicidal ideation and drug abuse. Today the patient is calm and cooperative during the assessment. She stated that she want to get better and have the will to stay off drugs. She denies SI/HI's, AVH's, delusions. She denies any side effects of her medications. She reports " I'm going to a half-way when I leave here. I will follow-up at the [facility] because that's where I get my medicine." Mental Status Exam - Vital signs Last Vital Signs Temp 98.3 F 10/05/18 12:06 Pulse 70 10/05/18 12:06 Resp 18 10/05/18 12:06 BP 82/52 10/05/18 12:06 Pulse Ox 98 10/05/18 12:06 - Exam Narrative exam: Mental Status Exam Appearance: calm, cooperative Behavior: regular eye contact Speech: regular rate and tone Mood: "I feel fine" Affect: congruent to mood Thought Process: linear Thought Content: denies SI/HI's, AVH's, delusions Motor Activity: sitting up in the bed Cognition: A/O x 3 Insight: fair Judgment: fair Assessment and Plan Impression: Bipolar DO. Substance Use DO (cocaine/amphetamine). Today the patient is calm and cooperative during the assessment. LF's trending down. At the time the patient's 1013 is rescinded patient is in no imminent danger to self/others. Discussed medications/ coping skills/ follow-up. Patient verbalizes full understanding. Discussed the importance of implementing coping skills. She denies SI/HI's, A/VH's, delusions, and craving/withdrawal symptoms. Recommendation/Plan: 1. Will rescind 1013. 2. Will continue Lamictal to 50 mg PO HS for mood and Wellbutrin 150 mg PO daily for depression. Discussed SJS with the patient, she verbalized understanding. Discussed possible suicidality/medication induced anat with the patient reference Wellbutrin, she verbalized understanding. Discussed the importance to abstain from recreational drug use with the patient, she verbalized understanding. Disposition: Patient will follow up with [facility] for outpatient psychiatric services. Staffed with Dr. Cherry [address].
[2018-10-05 16:26] VITALS: BP 97/64
== END 2018-10-05 17:35 | disposition home or self-care (01) | DRG 885 ==
LOC: ED 06:40 → EEVIPCON 06:40 → 3A 10:22
PROVIDERS: ADMIT Internal Medicine; ATTEND Internal Medicine
DX: F23 Brief psychotic disorder (principal); N17.0 Acute kidney failure with tubular necrosis; E87.1 Hypo-osmolality and hyponatremia; R45.851 Suicidal ideations; M62.82 Rhabdomyolysis; N39.0 Urinary tract infection, site not specified; F31.9 Bipolar disorder, unspecified; Z59.0 Homelessness; F15.10 Other stimulant abuse, uncomplicated; Z91.14 Patient's other noncompliance with medication regimen; F19.10 Other psychoactive substance abuse, uncomplicated; E87.6 Hypokalemia; F12.10 Cannabis abuse, uncomplicated; Z71.6 Tobacco abuse counseling; E83.39 Other disorders of phosphorus metabolism; E83.42 Hypomagnesemia
CPT/HCPCS: 36415; 80048; 80053; 80076; 80307; 80320; 81001; 81025; 82550; 83735; 84075; 84100; 84450; 84460; 85007; 85025; 87086; 87116; 99406; G0378; G0480; J0696; J1650; J1940; J3475; J7030; J7040